=== PATIENT | female | born 1995 | race Asian ===

== ENCOUNTER 2019-04-29 08:09 | Outpatient (CLI) | payer BC ==
--- NOTE | 2019-04-30 11:36 | NM ---
NUCLEAR MEDICINE THYROID SCAN AND UPTAKE STUDY: Date: 04/30/2019 HISTORY: 23-year-old female with ICD-10: E05.00 and E05.80, thyrotoxicosis with diffuse goiter without thyroto xic crisis or storm, and other thyrotoxicosis without thyrotoxic crisis or storm. TECHNIQUE: 0.25 mCi I-123 administered PO. 3 view thyroid scintigraphy obtained. 6 hour and 24 hour uptake studies performed. FINDINGS: There is homogeneous uptake of radiopharmaceutical throughout the left and right lobes of the thyroid gland. A faint pyramidal lobe is also visualized. No discrete hot or cold nodules identified. 6 Hour Uptake: 53% (normal range is 6-18%) 24 Hour Uptake: 69% (normal range is 10-30%) IMPRESSION: Evidence for hyperthyroidism due to Graves' disease. POS: [facility]
== END 2019-04-29 08:10 | disposition home or self-care (01) ==
LOC: NM 08:09
PROVIDERS: ATTEND Internal Medicine Endocrinology, Diabetes & Metabolism
DX: E05.00 Thyrotoxicosis with diffuse goiter without thyrotoxic crisis or storm (principal); E05.80 Other thyrotoxicosis without thyrotoxic crisis or storm; E03.9 Hypothyroidism, unspecified
CPT/HCPCS: 78014; A9516

== ENCOUNTER 2019-05-22 12:10 | Outpatient (CLI) | payer BC ==
[2019-05-22 12:44] LABS: BHCG - Serum Negative (NEGATIVE); Pregs Control Background? CLEAR/WHITE (CLR/WHITE); Pregs Control Bar Appear? YES (CONTROL BAR)
--- NOTE | 2019-05-22 14:44 | NM ---
PROCEDURE: I-131 treatment for thyrotoxicosis. INDICATION: Thyrotoxicosis with diffuse goiter that has been previously diagnosed by Dr. Mckeon. Dr. Xochitl rosales previously evaluated this patient and calculated and ordered the I-131 dose of 11.1 mCi. The patient presents today for treatment. Precautions are discussed with the patient. Followup remains with Dr. Mckeon. The patient is given 11.1 mCi I-131 capsule orally according to protocol. POS: [facility]
== END 2019-05-22 12:11 | disposition home or self-care (01) ==
LOC: NM 12:10
PROVIDERS: ATTEND Internal Medicine Endocrinology, Diabetes & Metabolism
DX: E05.00 Thyrotoxicosis with diffuse goiter without thyrotoxic crisis or storm (principal)
CPT/HCPCS: 36415; 79005; 84703; A9517

== ENCOUNTER 2020-06-29 08:14 | Outpatient (CLI) | payer BC | END 2020-06-29 08:15 | disposition home or self-care (01) | LOC: NM 08:14 | PROVIDERS: ATTEND Internal Medicine Endocrinology, Diabetes & Metabolism | DX: E05.00 Thyrotoxicosis with diffuse goiter without thyrotoxic crisis or storm (principal) | CPT/HCPCS: 78014; A9516 ==

== ENCOUNTER 2020-08-04 12:03 | Outpatient (CLI) | payer BC | END 2020-08-04 12:04 | disposition home or self-care (01) | LOC: NM 12:03 | PROVIDERS: ATTEND Internal Medicine Endocrinology, Diabetes & Metabolism | DX: Z32.00 Encounter for pregnancy test, result unknown (principal); E05.00 Thyrotoxicosis with diffuse goiter without thyrotoxic crisis or storm; E03.9 Hypothyroidism, unspecified | CPT/HCPCS: 79005; 84702; A9517 ==

== ENCOUNTER 2023-01-22 14:50 | Outpatient (CLI) | payer OTHER | END 2023-01-22 14:51 | disposition home or self-care (01) | LOC: BICULT 14:50 | PROVIDERS: ATTEND Student in an Organized Health Care Education/Training Program | DX: R22.33 Localized swelling, mass and lump, upper limb, bilateral (principal); D24.1 Benign neoplasm of right breast; D24.2 Benign neoplasm of left breast; R93.89 Abnormal findings on diagnostic imaging of other specified body structures | CPT/HCPCS: 76999 ==